=== PATIENT | female | born 1970 | race Caucasian/White ===

== ENCOUNTER 2021-09-16 22:13 | Observation (INO) | payer BC, SELFPAY ==
[2021-09-16 22:15] VITALS: BP 136/64; PULSE 88; RESP 14; TEMP 36.6; O2SAT 99; BMI 35.5
--- NOTE | 2021-09-16 22:19 | EDS_ITS ---
HPI History of Present Illness Chief Complaint: ETOH Intox Narrative Narrative: 51-year-old female presenting for EtOH detox. She states he drinks regularly 4-5 maybe 6 drinks a night with mixed drinks and uses vodka. She states has been drinking regularly every night for the last 2 years. She has not tried to stop. She admits to history of hypertension, anxiety, depression, RA, GERD, sleep apnea on BiPAP. Patient has not withdrawn in the past. No withdrawal seizure. She request detox. [facility] Medical History Anxiety and depression ETOH abuse Former tobacco use GERD (gastroesophageal reflux disease) HTN (hypertension) Iron deficiency anemia Obesity SHERICE on CPAP Rheumatoid arthritis Home Medications Vitamin D (with calcium) 09/16/21 [History Last Taken Unknown] amlodipine 10 mg PO DAILY 09/16/21 [History Last Taken Unknown] ferrous sulfate [Iron (ferrous sulfate)] 325 mg PO DAILY 09/16/21 [History Last Taken Unknown] fluoxetine [Prozac] 60 mg PO DAILY 09/16/21 [History Last Taken Unknown] lisinopril 40 mg PO DAILY 09/16/21 [History Last Taken Unknown] pantoprazole 20 mg PO DAILY 09/16/21 [History Last Taken Unknown] Allergy/AdvReac Type Severity Reaction Status Date / Time No Known Allergies Allergy Verified 09/16/21 22:18 Family History Mother Alcoholism Ulcerative colitis Rheumatoid arthritis Father Cancer Hx neuroendocrine cancer. Surgical History History of bilateral tubal ligation Social History household members: spouse Smoking Status: Former smoker how long ago did patient quit smoking: Smoked <1 ppd, quit 4 yrs ago, started age 22. alcohol intake: current alcohol intake frequency: 3 or more drinks per day details: 4-5 mixed vodka drinks each night with her spouse for at least 2 years. substance use type: does not use ROS ROS ED Constitutional Constitutional ED: Denies chills, fever(s) or sweats Eyes Eyes: Denies blurry vision or change in vision ENT ENT ED: Denies rhinorrhea or sore throat Cardiovascular Cardiovascular: Denies chest pain or palpitations Respiratory/Chest Respiratory/Chest: Denies cough or dyspnea Gastrointestinal Gastrointestinal: Denies abdominal pain or nausea Genitourinary Genitourinary ED: Denies dysuria or urinary frequency Musculoskeletal Musculoskeletal: Denies arthralgias or myalgias Integumentary Denies rash Neurologic Neurologic: Denies headache(s) or weakness EXAM Physical Exam Const Vital Signs: 09/16/21 22:15 Temperature 98 F Temperature Source Temporal Pulse Rate 88 Respiratory Rate 14 Blood Pressure 136/64 H Blood Pressure Mean 88 Pulse Ox 99 Oxygen Delivery Method Room Air Positive well nourished General Appearance ED: NAD; Negative for pallor HEENT Reports moist mucous membranes atraumatic Eyes PERRL and EOMs intact bilaterally Resp normal respiratory effort and clear to auscultation bilaterally Cardio regular rate and regular rhythm Neuro oriented x3 Sensorium / Orientation: alert Psych mental status grossly normal Skin General Skin Exam: Negative for jaundice or pallor Lesions: no lesions Rashes: no rashes MDM MDM MDM Narrative Medical decision making narrative: 51-year-old female presenting for alcohol detox. Vital signs are stable and she is afebrile. No history of withdrawal but she is concerned she might if she did stop drinking. She requests to be admitted for detox. Patient was discussed with hospitalist for admission. All lab work is pending. Impression: 1. History of alcohol abuse 2. Presentation for alcohol detox. Discharge Plan Triage Chief Complaint: ETOH Intox ED Provider: Seth Guerrero Dx/Rx/DC Orders Prescriptions: No Action ferrous sulfate [Iron (ferrous sulfate)] 325 mg (65 mg iron) Tablet 325 mg PO DAILY RF: 0 lisinopril 40 mg Tablet 40 mg PO DAILY RF: 0 fluoxetine [Prozac] 20 mg Capsule 60 mg PO DAILY RF: 0 Vitamin D (with calcium) RF: 0 pantoprazole 20 mg Tablet,Delayed Release (Dr/Ec) 20 mg PO DAILY RF: 0 amlodipine 10 mg Tablet 10 mg PO DAILY RF: 0
[2021-09-16 22:20] VITALS: PULSE 94; RESP 14; TEMP 37.1; O2SAT 98
[2021-09-16 22:22] VITALS: BP 132/88; PULSE 92; RESP 14; TEMP 37; O2SAT 99
--- NOTE | 2021-09-16 22:25 | HP.PCM.HOS_ITS ---
HPI - General General Date of Admission: 09/16/21 Date of Service: 09/16/21 Chief Complaint: EtOH detoxification request. HPI Narrative The patient is a 51 y/o F w/ PMHx: Anxiety and Depression, Obesity, GERD, SHERICE on CPAP, Chronic anemia/Fe deficiency anemia, Rheumatoid arthritis, HTN, GERD, EtOH abuse (4-5 mixed vodka heavy drinks each night x 2 years constant, drinking specifically with her spouse who presents to the [facility] on 09/16/21 initially with her spouse secondary to his onset of chest pain and elevated BP non-complaint with HTN regimen with his noting interest in EtOH withdrawal treatment and eventually during evaluation of her she also requested treatment. Discussed at length specifics of program and that they would be unable to visit with each other or have contact and they noted understanding and amenability. Patient reports not a single day without alcohol therefore she does not know if she has any withdrawal symptoms typically. Discussed with her that often patients can have nausea, tremors, agitation and tactile disturbances. She notes significant interest in sober status with continued sober status of also her spouse. Work-up in the ED included T98.6, heart rate 92, BP 132/88, respiratory rate 14, 99% on room air, pending CBC, CMP, UDS and ethyl alcohol level upon evaluation. [facility] Medical History Anxiety and depression ETOH abuse Former tobacco use GERD (gastroesophageal reflux disease) HTN (hypertension) Iron deficiency anemia Obesity SHERICE on CPAP Rheumatoid arthritis Home Medications Vitamin D (with calcium) 09/16/21 [History Last Taken Unknown] amlodipine 10 mg PO DAILY 09/16/21 [History Last Taken Unknown] ferrous sulfate [Iron (ferrous sulfate)] 325 mg PO DAILY 09/16/21 [History Last Taken Unknown] fluoxetine [Prozac] 60 mg PO DAILY 09/16/21 [History Last Taken Unknown] lisinopril 40 mg PO DAILY 09/16/21 [History Last Taken Unknown] pantoprazole 20 mg PO DAILY 09/16/21 [History Last Taken Unknown] Allergy/AdvReac Type Severity Reaction Status Date / Time No Known Allergies Allergy Verified 09/16/21 22:18 Family History Mother Alcoholism Ulcerative colitis Rheumatoid arthritis Father Cancer Hx neuroendocrine cancer. Surgical History History of bilateral tubal ligation Social History (Updated 09/16/21 @ 22:[address] Orly Holland MD) household members: spouse Smoking Status: Former smoker how long ago did patient quit smoking: Smoked <1 ppd, quit 4 yrs ago, started age 22. alcohol intake: current alcohol intake frequency: 3 or more drinks per day details: 4-5 mixed vodka drinks each night with her spouse for at least 2 years. substance use type: does not use ROS ROS Narrative Admission Review of Systems: CONSTITUTIONAL: No weight loss, fever, chills, + weakness or fatigue. HEENT: Eyes: No visual loss, blurred vision, double vision or yellow sclerae. Ears, Nose, Throat: No hearing loss, sneezing, congestion, runny nose or sore throat. SKIN: No rash or itching, lesions, wounds. CARDIOVASCULAR: No chest pain, chest pressure or chest discomfort, palpitations, edema, orthopnea, syncopal events. RESPIRATORY: No shortness of breath, cough or sputum, wheezing, hemoptysis. GASTROINTESTINAL: No anorexia, nausea, vomiting or diarrhea, abdominal pain, melena, BRBPR. GENITOURINARY: No dysuria, frequency, urgency or retention. NEUROLOGICAL: No headache, dizziness, syncope, paralysis, ataxia, numbness or tingling in the extremities, focal weakness, change in bowel or bladder control, seizure. MUSCULOSKELETAL: + muscle, back pain, joint pain or stiffness. HEMATOLOGIC: + anemia, bleeding or bruising. LYMPHATICS: No enlarged nodes. No history of splenectomy. PSYCHIATRIC: + history of depression or anxiety. ENDOCRINOLOGIC: No reports of sweating, cold or heat intolerance. No polyuria or polydipsia. ALLERGIES: No history of asthma, hives, eczema or rhinitis. Vital Signs Vital Signs Vital Signs: 09/16/21 22:15 09/16/21 22:20 09/16/21 22:22 Temperature 98 F 98.8 F 98.6 F Temperature Source Temporal Temporal Temporal Pulse Rate 88 94 92 Respiratory Rate 14 14 14 Blood Pressure 136/64 H 132/88 H Blood Pressure Mean 88 102 Pulse Ox 99 98 99 Oxygen Delivery Method Room Air Room Air Room Air Weight Weight: 220 lb Body Mass Index (BMI) 35.5 Physical Exam Narrative Physical Examination: General: Awake, alert, oriented x 3 and cooperative, seated upright in the ED, fatigued, tearful with discussions. Skin: Normal color, normal turgor, no icterus, no cyanosis. HEENT: AT/NC, EOMI, PERRLA, MMM, no carotid bruits or JVD noted. Lungs: CTA bilaterally, moderate effort, mild decrease BL bases, no rales, ronchi or wheezing. Heart: Currently regular rate and rhythm; no gallop, rub audible. Abdomen: Soft, obese, NTTP, ND, distant normal BS, no HSM. Extremities: No cyanosis, clubbing, or edema. Neurological: Patient awake, alert, oriented as noted, cognitive function intact; pupils equally reactive to light and accommodation, cranial nerves II- XII grossly normal, moving all 4 extremities, no focal deficits, strength preserved, no current tactile disturbances or any tremors. Psychiatric: Affect appears fatigued, tearful, underlying history of depression and anxiety which definitely from current evaluation are likely contributing to alcohol abuse. Assessment & Plan Assessment/Plan (1) Admitted to alcohol detoxification center: (2) ETOH abuse: PLAN: The patient is a 51 y/o F w/ PMHx: Anxiety and Depression, Obesity, GERD, SHERICE on CPAP, Chronic anemia/Fe deficiency anemia, Rheumatoid arthritis, HTN, GERD, EtOH abuse (4-5 mixed vodka heavy drinks each night x 2 years constant, drinking specifically with her spouse who presents to the [facility] on 09/16/21 initially with her spouse secondary to his onset of chest pain and elevated BP non-complaint with HTN regimen with his noting interest in EtOH withdrawal treatment and eventually during evaluation of her she also requested treatment. #1. EtOH Abuse with impending Acute EtOH Withdrawal w/ Detoxification treatment request: Will admit to [facility], routine labs obtained in the ED upon presentation and pending upon evaluation. Given interest in sobriety, will initiate and continue on protocol with taper course of Phenobarbital, scheduled gabapentin for seizure prophylaxis, as needed Catapres, Bentyl, Vistaril, IV fluids, IV antiemetics, Tylenol as needed for pain. Will consult Case management for assistance for transition to next level of rehabilitation care. Mag, phos pending. Maintain on CIWA protocol concurrently. #2. Hypertension: Continue home regimen including amlodipine, lisinopril, PRN hydralazine. #3. Anxiety and depression: We will continue patient on Prozac regimen. Patient would benefit from further counseling and potential regimen alterations as she was very tearful with discussions about her alcoholism and noted difficulties over the past years especially with COVID isolation. #4. Obesity: Weight loss and lifestyle changes encouraged. #5. GERD: We will continue patient home pantoprazole regimen. #6. Rheumatoid arthritis: Patient had previously been on Plaquenil but has been taken off of this, encourage continued outpatient follow-up with rheumatology. #7. Chronic anemia, iron deficiency anemia: Admission CBC is pending, will continue iron supplementation. #8. SHERICE: We will maintain on CPAP nightly. #9. DVT prophylaxis: Low risk, encourage ambulation. Charges/Coding Visit Charges Inpatient E&M: 12940 Init Hosp L2
[2021-09-16 22:54] LABS: Absolute Lymphocyte Count 1.61 X10^3/uL (0.83-4.51); Absolute Neutrophil Count 3.5 X10^3/uL (2.0-7.7); Basophil# 0.09 X10^3/uL; Basophil% 1.4 % (0-1); Eosinophil# 0.42 X10^3/uL; Eosinophils% 6.7 % (0-5); Hematocrit 42.7 % (37-47); Hemoglobin 14.1 g/dL (12.0-15.0); Lymphocyte # 1.61 X10^3/ul (0.83-4.51); Lymphocyte % 25.8 % (19-41); Mean Corpuscular Hgb 30.2 pg (27.0-32.0); Mean Corpuscular Volume 91.4 fL (81-99); Mean Platelet Vol. 9.9 fl (6.2-12.0); Monocyte# 0.56 X10^3/uL; NRBC Flagged by Analyzer 0 % (0-5); Neutrophil # 3.53 X10^3/uL (2.7-7.7); Neutrophil % 56.8 % (47-70); Platelet Count 284 K/mm3 (150-450); RBC Distribution Width CV 16.1 % (11.6-14.6); RBC Distribution Width SD 54.3 fl (35.1-43.9); Red Blood Count 4.67 M/mm3 (4.2-5.4); White Blood Count 6.2 K/mm3 (4.4-11.0)
[2021-09-16 22:56] LABS: Amphetamine Urine VISTA NEGATIVE (<1000 ng/mL); Barbiturate Urine VISTA NEGATIVE (< 200 ng/mL); Benzodiazepine Urine VISTA NEGATIVE (< 200 ng/mL); Cocaine Urine VISTA NEGATIVE (< 300 ng/mL); Ecstacy Urine VISTA NEGATIVE (< 500 ng/mL); Methadone Urine VISTA NEGATIVE (< 300 ng/mL); PCP Urine VISTA NEGATIVE (< 25 ng/mL); THC Urine VISTA NEGATIVE (< 50 ng/mL); Vista UDS pH Range 6
[2021-09-16 23:02] LABS: ALB/GLOB Ratio 1.1 RATIO (0.9-2.4); AST(SGOT) 49 U/L (15-37); Alanine Aminotransfer ALT/SGPT 89 U/L (13-56); Albumin, Serum 4.2 g/dL (3.2-5.0); Alkaline Phosphatase 89 U/L (45-117); Anion Gap 10 (5-15); BUN 12 mg/dL (7-18); BUN/Creat Ratio 14.4 RATIO (10-20); Calcium,Total 9.2 mg/dL (8.5-10.1); Chloride 105 mmol/L (98-107); Creatinine, Serum 0.83 mg/dL (0.55-1.02); EST Glomerular Filtration Rate 77 mL/min (>60); Est Glom Filt Rate - Afr Amer 93 mL/min (>60); Estimated Creatinine Clearance 76.75 ml/min; Globulin 3.8 g/dL (2.2-4.2); Glucose 118 mg/dL (74-106); Magnesium 2.2 mg/dL (1.6-2.6); Phosphorus 3.2 mg/dL (2.5-4.9); Potassium 3.5 mmol/L (3.5-5.1); Sodium Level 139 mmol/L (136-145)
[2021-09-16 23:05] VITALS: BMI 35.4
[2021-09-16 23:11] VITALS: BP 171/83; PULSE 91; RESP 16; TEMP 36.9; O2SAT 99
[2021-09-16 23:21] LABS: Alcohol, Blood (Medical)-Serum < 3.0 mg/dL
[2021-09-16] MEDS: Lactated Ringers 1,000 ML 125 ML IV (23:46)
[2021-09-16] MEDS: Phenobarbital 32.4 MG Tablet 64.8 MG PO (23:46)
[2021-09-17] VITALS (7 sets, daily range): BP systolic 125–156; BP diastolic 63–98; PULSE 77–88; RESP 16–18; TEMP 36.3–37.4; O2SAT 97–100
--- NOTE | 2021-09-17 02:49 | CPS ---
pt refused CPAP
[2021-09-17] MEDS: Phenobarbital 32.4 MG Tablet 64.8 MG PO ×6 (03:36→22:25)
[2021-09-17] MEDS: Ferrous Sulfate 325 MG Tablet PO (07:30)
[2021-09-17] MEDS: Folic Acid 1 MG Tablet PO (07:30)
[2021-09-17] MEDS: Thiamine Hydrochloride 100 MG Tablet PO (07:33)
[2021-09-17] MEDS: Lisinopril 40 MG Tablet PO (08:35)
[2021-09-17] MEDS: FLUoxetine 20 MG Capsule 60 MG PO (08:35)
[2021-09-17] MEDS: Pantoprazole Sodium 20 MG Tablet PO (08:35)
[2021-09-17] MEDS: amLODIPine 10 MG Tablet PO (08:36)
--- NOTE | 2021-09-17 11:15 | PN.HOSP_ITS ---
Subjective Subjective Patient seen and examined. She had no active complaints and had an uneventful night. Review of systems is otherwise negative. She has remained hemodynamically stable. Objective Data Objective Data Vital Signs: Vital Signs Temp Pulse Resp BP Pulse Ox 98.2 F 88 16 156/98 H 100 09/17/21 08:34 09/17/21 08:34 09/17/21 08:34 09/17/21 08:34 09/17/21 08:34 Oxygen Delivery Method Room Air Weight: 219 lb 2.232 oz Body Mass Index (BMI) 35.4 Intake & Output: Intake and Output for Last 24 Hours 09/15/21 09/16/21 09/17/21 23:59 23:59 23:59 Intake Total 1000 / 1000 Balance 1000 / 1000 Lab / Micro Data Result Diagrams: 09/16/21 22:36 09/16/21 22:36 Labs: Laboratory Results - last 24 hr 09/16/21 22:30: Urine Opiates Screen NEGATIVE, Urine Methadone Screen NEGATIVE, Ur Barbiturates Screen NEGATIVE, Ur Phencyclidine Scrn NEGATIVE, Ur Amphetamines Screen NEGATIVE, MDMA (Ecstasy) Screen NEGATIVE, U Benzodiazepines Scrn NEGATIVE, Urine Cocaine Screen NEGATIVE, U Cannabinoids Screen NEGATIVE, Ur Drug Screen Comment 09/16/21 22:36: WBC 6.2, RBC 4.67, Hgb 14.1, Hct 42.7, MCV 91.4, MCH 30.2, MCHC 33.0, RDW Std Deviation 54.3 H, RDW Coeff of Carina 16.1 H, Plt Count 284, MPV 9.9, Immature Gran % (Auto) 0.300, Neut % (Auto) 56.8, Lymph % (Auto) 25.8, [place] % (Auto) 9.0, Eos % (Auto) 6.7 H, Baso % (Auto) 1.4 H, Absolute Neuts (auto) 3.5, Absolute Lymphs (auto) 1.61, Nucleated RBC % 0 09/16/21 22:36: Sodium 139, Potassium 3.5, Chloride 105, Carbon Dioxide 24.0, Anion Gap 10, BUN 12, Creatinine 0.83, Estim Creat Clear Calc 76.75, Est GFR (MDRD) Af Amer 93, Est GFR (MDRD) Non-Af 77, BUN/Creatinine Ratio 14.4, Glucose 118 H, Calcium 9.2, Magnesium 2.2, Total Bilirubin 0.40, AST 49 H, ALT 89 H, Alkaline Phosphatase 89, Total Protein 8.0, Albumin 4.2, Globulin 3.8, Albumin/Globulin Ratio 1.1 09/16/21 22:36: Ethyl Alcohol < 3.0 09/16/21 22:36: Phosphorus 3.2 Physical Exam Const alert, oriented x3 and no apparent distress Exam Limitations: no limitations HEENT head/scalp atraumatic and moist oral mucous membranes Head and Scalp: normocephalic Eyes PERRL, EOMs intact bilaterally and conjunctivae normal Neck no lymphadenopathy and supple Resp normal respiratory effort, no retractions, no use of accessory muscles and clear to auscultation bilaterally Cardio regular rate, regular rhythm, S1 normal heart sound, S2 normal heart sound and no murmurs GI normal to inspection, nondistended, normoactive bowel sounds, soft to palpation, non-tender and non-distended Extremity normal to inspection, full ROM and no clubbing, cyanosis or edema Peripheral Pulses: Yes pulses 2+ throughout Skin no rashes or lesions noted Neuro oriented x3 and CN's II-XII intact bilaterally Sensorium / Orientation: awake and alert Psych affect normal Assessment & Plan Assessment/Plan (1) ETOH abuse: PLAN: #Acute alcohol withdrawal * on alcohol withdrawal protocol with phenobarbital * monitor CIWA score * on thiamine, folic acid and multivite * adjunctive meds for symptomatic relief * #Hypertension * on amlodipine, lisinopril. IV hydralazine prn * #Anxiety and depression * on Prozac * #Rheumatoid arthritis is * Has been off her Plaquenil. To establish care with rheumatology on outpatient basis. * #Iron deficiency anemia: On oral iron supplementation. #SHERICE: On CPAP nightly DVT prophylaxis: Low risk. Encourage ambulation Charges/Coding Visit Charges Inpatient E&M: 40493 Subs Hosp L2
[2021-09-18 02:15] VITALS: BP 121/78; PULSE 73; RESP 18; TEMP 36.5; O2SAT 99
[2021-09-18] MEDS: Phenobarbital 32.4 MG Tablet 64.8 MG PO ×6 (02:23→23:38)
[2021-09-18 06:00] VITALS: BP 125/79; PULSE 80; RESP 16; TEMP 36.8; O2SAT 98
[2021-09-18 09:40] VITALS: BP 130/76; PULSE 80; RESP 18; TEMP 36.9; O2SAT 99
[2021-09-18] MEDS: Lisinopril 40 MG Tablet PO (09:46)
[2021-09-18] MEDS: Folic Acid 1 MG Tablet PO (09:47)
[2021-09-18] MEDS: Thiamine Hydrochloride 100 MG Tablet PO (09:47)
[2021-09-18] MEDS: FLUoxetine 20 MG Capsule 60 MG PO (09:47)
[2021-09-18] MEDS: Ferrous Sulfate 325 MG Tablet PO (09:47)
[2021-09-18] MEDS: amLODIPine 10 MG Tablet PO (09:47)
[2021-09-18] MEDS: Pantoprazole Sodium 20 MG Tablet PO (09:47)
[2021-09-18 10:48] VITALS: O2SAT 95
--- NOTE | 2021-09-18 12:59 | ADDICTION ---
This jingle writer met with PT to conduct ASAM, MSE, AUDIT assessments and to plan for d/c. PT A+Ox4 and participated actively. All assessments completed and placed in PT's chart. PT plans to f/u with [facility] in [place] for follow-up treatment services. PT did not indicate a need for transportation post d/c from [facility].
--- NOTE | 2021-09-18 13:04 | PCM.PN.HOSP ---
Subjective Subjective Reports that she is feeling much better overall. She is anxious to be able to go back to work on Saturday if possible. I did discuss probable discharge tomorrow morning with intended follow-up at 180 however they have not been in to see her as of yet. Objective Data Objective Data Vital Signs: Vital Signs Temp Pulse Resp BP Pulse Ox 98.5 F 80 18 130/76 H 95 09/18/21 09:40 09/18/21 09:40 09/18/21 09:40 09/18/21 09:40 09/18/21 10:48 Oxygen Delivery Method Room Air Weight: 99.4 kg Body Mass Index (BMI) 35.4 Intake & Output: Intake and Output for Last 24 Hours 09/16/21 09/17/21 09/18/21 23:59 23:59 23:59 Intake Total 2500 / 2500 360 / 360 Balance 2500 / 2500 360 / 360 Lab / Micro Data Result Diagrams: 09/16/21 22:36 09/16/21 22:36 Physical Exam Const alert, oriented x3 and no apparent distress Constitutional Narrative: Obese 51-year-old female sitting up in bed watching television, appears comfortable nontoxic HEENT head/scalp atraumatic and moist oral mucous membranes Head and Scalp: normocephalic Resp normal respiratory effort, no retractions, no use of accessory muscles and clear to auscultation bilaterally Auscultation: Negative for crackles, rales, rhonchi or wheezes Cardio regular rate, regular rhythm, S1 normal heart sound, S2 normal heart sound, no murmurs, no rub, no gallops, no clicks and no JVD GI normal to inspection, nondistended, normoactive bowel sounds, soft to palpation, non-tender and non-distended Extremity no clubbing, cyanosis or edema Peripheral Pulses: Yes pulses 2+ throughout Neuro oriented x3, moves all extremities and no focal motor deficits Sensorium / Orientation: awake and alert Speech: speech normal Psych affect normal Psych Narrative: A pleasant and appropriately interactive Assessment & Plan Assessment/Plan (1) ETOH abuse: (2) Admitted to alcohol detoxification center: PLAN: Acute alcohol withdrawal/detox -Patient is drinking approximately 4-5 mixed drinks with vodka nightly for approximately 2 years consistently -Patient appears stable at this point -Continue phenobarbital taper -Continue thiamine and folate -Continue supportive medications -ADM consult pending Hypertension -Continue home amlodipine and lisinopril History of RA -Patient has been off her Plaquenil -Will need to establish care with rheumatology as an outpatient History of iron deficiency anemia -Hemoglobin is currently stable -Continue supplementation SHERICE -Continue CPAP at night Anxiety/depression -Continue Prozac DVT prophylaxis -Low risk -Early ambulation CODE STATUS -Full code Charges/Coding Visit Charges Inpatient E&M: 19231 Subs Hosp L2
[2021-09-18 15:36] VITALS: BP 127/61; PULSE 78; RESP 18; TEMP 37.1; O2SAT 99
[2021-09-18 21:18] VITALS: BP 135/74; PULSE 73; RESP 16; TEMP 36.6; O2SAT 98
[2021-09-19] MEDS: Phenobarbital 32.4 MG Tablet 64.8 MG PO ×2 (04:34→08:11)
[2021-09-19 04:37] VITALS: BP 138/84; PULSE 71; RESP 18; TEMP 36.6; O2SAT 99
[2021-09-19 07:30] VITALS: O2SAT 97
[2021-09-19] MEDS: Ferrous Sulfate 325 MG Tablet PO (07:54)
[2021-09-19] MEDS: Folic Acid 1 MG Tablet PO (07:54)
[2021-09-19] MEDS: Thiamine Hydrochloride 100 MG Tablet PO (07:55)
[2021-09-19 08:27] VITALS: BP 144/84; PULSE 78; RESP 18; TEMP 36.3; O2SAT 98
[2021-09-19] MEDS: Pantoprazole Sodium 20 MG Tablet PO (10:24)
[2021-09-19] MEDS: amLODIPine 10 MG Tablet PO (10:24)
[2021-09-19] MEDS: Lisinopril 40 MG Tablet PO (10:24)
[2021-09-19] MEDS: FLUoxetine 20 MG Capsule 60 MG PO (10:24)
--- NOTE | 2021-09-19 11:12 | PCM.DC.SUM ---
Providers Date of Admission: 09/16/21 Date of Discharge: 09/19/21 Primary Care Physician: GUZMAN VILLATORO Reason For Visit: ETOH ABUSE, DETOXIFICATION Diagnosis Discharge Diagnosis (1) ETOH abuse: Status: Acute Code(s): F10.10 - Alcohol abuse, uncomplicated (2) Admitted to alcohol detoxification center: Status: Acute Medications at Discharge Home Medications Vitamin D (with calcium) 1 tab PO/SL DAILY 09/16/21 amlodipine 10 mg PO DAILY 09/16/21 ferrous sulfate [Iron (ferrous sulfate)] 325 mg PO DAILY 09/16/21 fluoxetine [Prozac] 60 mg PO DAILY 09/16/21 lisinopril 40 mg PO DAILY 09/16/21 pantoprazole 20 mg PO DAILY 09/16/21 Hospital Course Summary of Care Provided Minutes Spent on Discharge: 36 Hospital Course: Mrs. Parker is a 51-year-old female who presented to the emergency department at [facility] on 08/17/2021 with a request for alcohol detoxification. The patient reported on admission she drinks 4-5 mixed vodka and drinks that are heavy on the alcohol each night and this has been an consistent thing for approximately 2 years. She reports that she is never gone through withdrawal previously as she has never been without alcohol in the last 2 years. Her work-up in the emergency department was overall unremarkable. She was admitted to the medical floor and placed on a phenobarbital taper as well as thiamine and folate along with supportive medications for symptoms. She overall did very well with regards to her detox and did not experience any severe withdrawal symptoms. She did meet with addiction medicine during her hospital course and they discussed options with her and the plan is for her to follow-up at [facility] addiction [facility] recovery in [place] after discharge. She was also given the addiction medicine book and workbook and did review these during her hospitalization and intends to buy them after discharge. She appears to be certain very serious with regards to her sobriety and recovery. She was discharged in stable condition to home on 09/19/2021. She can return to work tomorrow and I have recommended she follow-up with her primary care physician in the next 1 to 2 weeks. Discharge diagnoses: Acute alcohol withdrawal/detox Hypertension History of rheumatoid arthritis History of iron deficiency anemia SHERICE Anxiety Depression Physical Exam Const alert, oriented x3 and no apparent distress Constitutional Narrative: Very pleasant obese 51-year-old female sitting up in a chair at the bedside, watching television and eating breakfast, appears comfortable nontoxic General Appearance: cooperative, comfortable, well kempt and well developed Orientation / Consciousness: awake Exam Limitations: no limitations Nutritional Appearance: obese HEENT normocephalic, head/scalp atraumatic, hearing grossly normal bilaterally and moist oral mucous membranes HEENT Narrative: Mallampati 2-3, no thrush Eyes PERRL, EOMs intact bilaterally and conjunctivae normal Eyes Narrative: No scleral icterus Neck no lymphadenopathy, supple and no JVD Neck Narrative: Trachea midline, no thyroid enlargement Resp normal respiratory effort, no retractions, no use of accessory muscles and clear to auscultation bilaterally Auscultation: Negative for crackles, rales, rhonchi or wheezes Cardio regular rate, regular rhythm, S1 normal heart sound, S2 normal heart sound, no murmurs, no rub, no gallops, no clicks and no JVD GI normal to inspection, nondistended, normoactive bowel sounds, soft to palpation, non-tender and non-distended Extremity normal to inspection, full ROM and no clubbing, cyanosis or edema Skin no rashes or lesions noted, no wounds, skin turgor normal and no jaundice Neuro oriented x3, CN's II-XII intact bilaterally, moves all extremities and no focal motor deficits Sensorium / Orientation: awake and alert Speech: speech normal Motor Exam: strength 5/5 throughout Psych affect normal Psych Narrative: A pleasant and appropriately interactive Weight / BMI Weight Weight: 99.4 kg Body Mass Index (BMI) 35.4 ABG / Lab / Microbiology Data Result Diagrams: 09/16/21 22:36 09/16/21 22:36 D/C Instructions Discharge Diet: Low fat / Low cholesterol Discharge Activity: Return to Normal Activity Return to work on: 09/20/21 Meaningful Use Info Meaningful Use Diagnoses (Choose all that apply): None applicable Discharge Plan Admission Admit Date/Time: 09/16/21 22:21 Primary Reason for Your Visit: Alcohol detox Attending Provider: Irma Blanchard Consulting Providers: Orly Holland Nana Yaa Instructions Forms: Work Excuse, Work / School Excuse Discharge Orders/Prescriptions Prescriptions: Continued ferrous sulfate [Iron (ferrous sulfate)] 325 mg (65 mg iron) Tablet 325 mg PO DAILY RF: 0 lisinopril 40 mg Tablet 40 mg PO DAILY RF: 0 fluoxetine [Prozac] 20 mg Capsule 60 mg PO DAILY RF: 0 Vitamin D (with calcium) 1 tab PO/SL DAILY RF: 0 pantoprazole 20 mg Tablet,Delayed Release (Dr/Ec) 20 mg PO DAILY RF: 0 amlodipine 10 mg Tablet 10 mg PO DAILY RF: 0 Referrals / Follow Up: GUZMAN VILLATORO [Other] - In 1 Week Disposition Disposition (needs filled in before D/C Order can be placed): Home, Self Care Charges/Coding Visit Charges Inpatient E&M: 10951 Disch Hosp
[2021-09-19 12:17] VITALS: BP 148/70; PULSE 78; RESP 18; TEMP 36.8; O2SAT 98
== END 2021-09-19 12:32 | disposition home or self-care (01) | DRG 897 ==
LOC: ED 22:37 → MS3 22:52
PROVIDERS: Admitting Provider Family Medicine; Emergency Provider Student in an Organized Health Care Education/Training Program; Visit Provider Internal Medicine
DX: F10.139 Alcohol abuse with withdrawal, unspecified (principal); M06.9 Rheumatoid arthritis, unspecified; D50.9 Iron deficiency anemia, unspecified; I10 Essential (primary) hypertension; K21.9 Gastro-esophageal reflux disease without esophagitis; F41.9 Anxiety disorder, unspecified; G47.33 Obstructive sleep apnea (adult) (pediatric); Y90.0 Blood alcohol level of less than 20 mg/100 ml; E66.9 Obesity, unspecified; F32.A Depression, unspecified; Z68.35 Body mass index [BMI] 35.0-35.9, adult; Z79.899 Other long term (current) drug therapy; Z87.891 Personal history of nicotine dependence
CPT/HCPCS: 80053; 80307; 82077; 83735; 84100; 85025; 96360; 96361; 99218; 99283; J7120; G0378